=== PATIENT | female | born 1985 | race Caucasian/White ===

== ENCOUNTER 2021-06-24 09:47 | Emergency (ER) | payer MEDICAID, OTHER ==
[~2021-06-24] VITALS: Ht 165.1 cm; Wt 63.5 kg
--- NOTE | 2021-06-24 10:20 | NUR ---
Dr Schumacher at the bedside for MSE.
[2021-06-24 10:40] LABS: HEMATOCRIT 43.8 % (31.2-41.9); MEAN CORPUSCULAR HEMOGLOBIN 32.2 uug (24.7-32.8); MEAN CORPUSCULAR VOLUME 96.2 fL (75.5-95.3); PLATELET COUNT (AUTO) 333 K/uL (179-408)
[2021-06-24 10:47] LABS: CARBON DIOXIDE 24 mmol/L (21-32); CHLORIDE 104 mmol/L (98-107); CREATININE 0.7 mg/dL (0.6-1.3); GLUCOSE 98 mg/dL (74-106); POTASSIUM 4.2 mmol/L (3.5-5.1); UREA NITROGEN, BLOOD 13 mg/dL (7-18)
[2021-06-24 10:53] LABS: ALANINE AMINOTRANSFERASE 22 U/L (14-59); ALKALINE PHOSPHATASE 58 U/L (50-136); ASPARTATE AMINOTRANSFERASE 18 U/L (15-37); BILIRUBIN,DIRECT 0.1 mg/dL (0.0-0.2); BILIRUBIN,TOTAL 0.6 mg/dL (0.2-1.0); LIPASE 68 U/L (73-393); TOTAL PROTEIN, SERUM 7.6 g/dL (6.4-8.2)
--- NOTE | 2021-06-24 11:52 | NUR ---
Patient discharged to home in stable condition. Written and verbal after care instructions given. Patient verbalizes understanding of instructions. Stressed follow up or return to ER for worsening s/s.
[2021-06-24 11:53] VITALS: BP 124/87
== END 2021-06-24 11:53 | disposition home or self-care (01) ==
LOC: ER 09:47
DX: N94.6 Dysmenorrhea, unspecified (principal)
CPT/HCPCS: 36415; 76856; 83690; 85025; A4663

== ENCOUNTER 2021-07-21 13:15 | Emergency (ER) | payer OTHER ==
[~2021-07-21] VITALS: Ht 165.1 cm; Wt 63.5 kg
--- NOTE | 2021-07-21 13:15 | NUR ---
Sabrina prince in [facility] - 07/21/21 at 1426 by CRISTOBAL PT HERE FOR OUT PATIENT PELVIC ULTRA SOUND.
[2021-07-21 14:44] LABS: MEAN CORPUSCULAR HEMOGLOBIN 33.7 uug (24.7-32.8); MEAN CORPUSCULAR VOLUME 97.8 fL (75.5-95.3); PLATELET COUNT (AUTO) 184 K/uL (179-408)
--- NOTE | 2021-07-21 14:55 | NUR ---
CHAPERONED US BEING DONE. PT TOLERATED WELL.
--- NOTE | 2021-07-21 15:18 | NUR ---
Patient discharged to home in stable condition with brisk steady gait. Written and verbal after care instructions given to patient and boyfriend. Patient verbalized understanding and compliance of instructions. Stressed follow up with primary doctor and OB-gyne doctor or return to ER for worsening s/s. Copies of all the tests' results were given to patient.
== END 2021-07-21 15:18 | disposition home or self-care (01) ==
LOC: ER 13:15
DX: O26.891 Other specified pregnancy related conditions, first trimester (principal)
CPT/HCPCS: 36415; 76856; 85025; A4663